=== PATIENT | female | born 1975 | race Caucasian/White ===

== ENCOUNTER 2017-04-23 13:10 | Inpatient (IN) | payer OTHER ==
[~2017-04-23] VITALS: Ht 167.6 cm; Wt 64.5 kg
--- NOTE | ~2017-04-23 | CO ---
Unit #: [id number] #: [id number] Patient: HENRY FAUST [id number] [address] [address] [id number] I MR#: [id number] NAME: HENRY FAUST ROOM: 321 Age: 41 Sex: F Admission Date: 04/23/2017 : 1975 Attending Physician: Vibha Sears M.D. Primary Care Physician: Primary Care Physician No Consultation Date: 04/25/2017 CONSULTATION REPORT REASON FOR CONSULTATION Followup. DISCUSSION Ms. Henry Faust is a 41-year-old white female, seen in room 321, bed 1, on 04/25/2017. The patient was receiving treatment for the infection of her swollen foot. History of opioid abuse and polysubstance abuse. Drug of choice opioids and amphetamine. The patient denied any suicidal or homicidal ideation. Denied any psychotic symptom, but reports that she wanted to go home. The patient was placed on 72-hour hold and a sitter and she made comment at the time of admission about harming herself. The patient denied any current suicidal or homicidal ideation. Denied any psychotic symptom. The patient understands that if she leaves that infection can spread. The patient understands the nature of illness and consequences. Vital signs; temperature 98.9, heart rate 91, respiratory rate 16, blood pressure 146/95, and oxygen saturation 100%. The patient alert and oriented in time, place, and person. REVIEW OF SYSTEMS Complete review of systems unremarkable. MENTAL STATUS EXAMINATION General appearance, the patient dressed casually in hospital attire. Attention span and concentration, fair. Oriented in time, place, and person. Mood and affect, labile. Speech, regular rate. Thought process, circumstantial. Thought content, the patient denied any thoughts of harming self or others or any psychotic symptom. Recent and remote memory, fair. The patient denied any suicidal or homicidal ideation. Denied any psychotic symptom. Fund of knowledge, fair. Insight and judgment, fair to slightly impaired. DIAGNOSES Psychiatric: Opioid use disorder, severe, F11.20 and mood disorder, not otherwise specified, F32.9. ASSESSMENT/PLAN 1. Supportive psychotherapy and psychoeducation provided to the patient. 2. Educated about benefits and side effects of medication and course and prognosis of illness. 3. Advised to continue with current treatment. Advised to discontinue 72-hour hold and one-to-one monitoring. Please feel free to call if any questions, telephone #[phone]. Unit #: [id number] #: [id number] Patient: HENRY FAUST Dictated by... Manuel Kennedy/alysia TD: 04/25/2017 16:00 JOB #: [id number] CONSULTATION REPORT Page 1 of 1 X Omid Flores MD X CONSULTATION REPORT
--- NOTE | ~2017-04-23 | HP ---
Unit #: [id number] #: [id number] Patient: HENRY FAUST [id number] [facility] [address] [facility]. [place], [place] [address] [id number] I MR#: [id number] NAME: HENRY FAUST ROOM: 88868 Age: 41 Sex: F Admission Date: 04/23/2017 : 1975 Attending Physician: Vibha Sears M.D. Primary Care Physician: No Primary Care Physician HISTORY AND PHYSICAL DIAGNOSIS ON ADMISSION Left foot cellulitis. HISTORY OF PRESENT ILLNESS A 41-year-old patient presented to [facility] with left foot swelling. The patient is currently lethargic and is mumbling words and is not good historian. Patient states that her foot was swollen for last two days. She denies any injury to that. Patient was apparently as per ER notes; patient's friend stated that patient was shooting up IV drugs in his foot which patient denies. Patient also told EMS that she wanted to kill herself; therefore, currently she is in a 72-hour hold. Patient denies having a fever, chills or cough. She denies any blood in urine or in stools. She states that she is not trying to hurt herself as she has children. Currently she denies any suicidal ideation or intention. REVIEW OF SYSTEMS Rest of the review of systems is negative but is not reliable because of patient being lethargic. PAST MEDICAL HISTORY Patient has a history of depression as per patient but said she does not take any medications as she has history of anxiety disorder and IV heroin use. PAST SURGICAL HISTORY History of laceration because of needle stuck in arm. She has tubal ligation. ALLERGIES Allergies are no known drug allergies. HOME MEDICATIONS None. SOCIAL HISTORY Patient smokes one pack of cigarettes per day and she uses IV heroin but states that her last use was a few days ago. FAMILY HISTORY Patient denies any history of significant illness in the family. PHYSICAL EXAMINATION GENERAL: Patient is lying comfortably in bed, is not in any obvious acute Unit #: [id number] #: [id number] Patient: HENRY FAUST distress. She is lethargic. VITAL SIGNS: Reveal a temperature of 98.4, pulse currently is 92 per minute, respiratory rate is 16 per minute, blood pressure is 108/68. HEENT: Examination revealed no conjunctival congestion. Sclerae is nonicteric. NECK: Is supple. Trachea is central. RESPIRATORY: Examination revealed decreased breath sounds bilaterally. There are no wheezes or crackles. HEART: Is regular rate and rhythm, S1, S2. ABDOMEN: is soft but tender. Bowel sounds are present in all 4 quadrants. EXTREMITIY: Patient has left foot swelling. It is warm to touch and there is erythema present. Patient has a pedal pulse present. SKIN: Is warm and dry. PSYCHIATRIC: Patient has flat affect but is alert to person, place and time. DIAGNOSTIC STUDIES LABS: On admission the patient's creatinine is 0.9, sodium was 120, potassium is 2.4. AST and ALT is within normal limits. WBC is 21.4, hemoglobin is 9.8, platelet count is 189. Patient's BNP was 167. Urine tox screen was positive for amphetamines and opiates. Lactic acid level was 1.7. ASSESSMENT AND PLAN 1. Left foot cellulitis. Patient already given IV vancomycin. I will also add IV Levaquin. 2. Suicidal ideation. Patient is in 72-hour hold. I will request Dr. Flores to see patient in consultation. 3. History of IV drug (heroin) use. 4. Hyponatremia. Will start the patient on 0.9 normal saline and will repeat sodium in the morning. 5. Hypokalemia. Patient is already receiving IV runs. We will repeat patient's potassium after the runs and if potassium low will start him on potassium protocol. 6. I discussed with patient in detail who is aware of her fact that her overall IV drug abuse can lead to permanent disability and can cause possible . Dictated by Manuel Kirkpatrick TD: 04/23/2017 21:08 JOB #: [id number] Unit #: [id number] #: [id number] Patient: HENRY FAUST HISTORY AND PHYSICAL Page 1 of 1 X Vibha Sears MD HISTORY AND PHYSICAL
--- NOTE | ~2017-04-23 | CR126 ---
[facility] A Service of [facility] RADIOLOGY TEXT RESULTS PATIENT: HENRY FAUST LOCATION: [facility] : [birth year] UNIT #: [id number] AGE: [address]: Vibha Sears MD SEX: F ORDER DR: [id number] [address] [place], [place] [address] [id number] I MR#: [id number] Acc #: [id number] NAME: HENRY FAUST : 1975 SEX: F STUDY DATE/TIME: 04/23/2017 15:58 UNIT: [address] ROOM: [facility] STUDY DESCRIPTION: CR Foot Complete Min 3 View Lt Attending Physician: Vibha Sears M.D. Ordering Physician: Kristine Agarwal M.D. Primary Care Physician: No Primary Care Physician MEDICAL IMAGING REPORT This report is preliminary unless electronic signature is present EXAM 3 views left foot DATE 04/23/2017 HISTORY Left foot and ankle pain and swelling for 2 days. No known injury. COMPARISON None. FINDINGS Diffuse left foot soft tissue swelling is present. No fracture. No dislocation. Small plantar calcaneal spur. No retained opaque foreign body. No subcutaneous gas. IMPRESSION Diffuse left foot soft tissue swelling. No acute osseous abnormality or retained radiopaque foreign body. Dictated by... Brisa August M.D. THIS IS AN ELECTRONICALLY VERIFIED REPORT Brisa August M.D. at 04/24/2017 5:[address] [facility]/rosibel TD: 04/24/2017 11:58 JOB #: [id number] MEDICAL IMAGING REPORT [facility] A Service [facility] RADIOLOGY TEXT RESULTS PATIENT: HENRY FAUST LOCATION: [facility] : [birth year] UNIT #: [id number] AGE: [address]: Vibha Sears MD SEX: F ORDER DR: Page 1 of 1 COPY
--- NOTE | ~2017-04-23 | CR20 ---
[facility] A Service of [facility] & [facility] RADIOLOGY TEXT RESULTS PATIENT: HENRY FAUST LOCATION: [facility] 321- : [birth year] UNIT #: [id number] AGE: [address]: Vibha Sears MD SEX: F ORDER DR: [id number] [facility] [address] [facility]. [place], [place] [address] [id number] I MR#: [id number] Acc #: [id number] NAME: HENRY FAUST : 1975 SEX: F STUDY DATE/TIME: 04/23/2017 15:58 UNIT: [address] ROOM: [facility] STUDY DESCRIPTION: CR Ankle Min 3 Views Lt Attending Physician: Vibha Sears M.D. Ordering Physician: Kristine Agarwal M.D. Primary Care Physician: Primary Care Physician No MEDICAL IMAGING REPORT This report is preliminary unless electronic signature is present EXAM 3 views left ankle. DATE: 04/23/2017 HISTORY Left foot and ankle pain and swelling for 2 days. No known injury. COMPARISON None. FINDINGS Left ankle soft tissue swelling is present, slightly greatest medially. No fracture. No dislocation. Small plantar calcaneal spur. No retained radiopaque foreign body. IMPRESSION Mild left ankle soft tissue swelling. No acute osseous abnormality. Dictated by... Brisa August M.D. THIS IS AN ELECTRONICALLY VERIFIED REPORT Brisa August M.D. at 04/24/2017 5:[address] [facility]/denise TD: 04/24/2017 11:51 JOB #: [id number] MEDICAL IMAGING REPORT Page 1 of 1 COPY
--- NOTE | ~2017-04-23 | CR229 ---
[facility] A Service of [facility] & [facility] RADIOLOGY TEXT RESULTS PATIENT: HENRY FAUST LOCATION: [facility] 321- : [birth year] UNIT #: [id number] AGE: [address]: Vibha Sears MD SEX: F ORDER DR: [id number] [facility] [address]. [place], [place] [address] [id number] I MR#: [id number] Acc #: [id number] NAME: HENRY FAUST : 1975 SEX: F STUDY DATE/TIME: 04/24/2017 11:00 UNIT: [address] ROOM: [facility] STUDY DESCRIPTION: CR Shoulder Min 2 View Lt Attending Physician: Vibha Sears M.D. Ordering Physician: Vibha Sears M.D. Primary Care Physician: Primary Care Physician No MEDICAL IMAGING REPORT This report is preliminary unless electronic signature is present EXAM Left shoulder 2 views HISTORY Shoulder and wrist pain for 2 days. No known injury. FINDINGS 2 views of the left shoulder demonstrates no fracture, dislocation or arthritic inflammatory change. Soft tissues and visualized left thorax appear normal. IMPRESSION Negative left shoulder Dictated by... Jo Shin M.D. THIS IS AN ELECTRONICALLY VERIFIED REPORT Jo Shin M.D. at 04/26/2017 2:35 PM EDWIGE/milind TD: 04/24/2017 20:28 JOB #: [id number] MEDICAL IMAGING REPORT Page 1 of 1 COPY
--- NOTE | ~2017-04-23 | CT57 ---
[facility] A Service of [facility] & [facility] RADIOLOGY TEXT RESULTS PATIENT: HENRY FAUST LOCATION: [facility] 321-01 : [birth year] UNIT #: [id number] AGE: [address]: Vibha Sears MD SEX: F ORDER DR: [id number] [facility] [address]. [place], [place] [address] [id number] I MR#: [id number] Acc #: [id number] NAME: HENRY FAUST : 1975 SEX: F STUDY DATE/TIME: 04/24/2017 20:23 UNIT: A U ROOM: 321 STUDY DESCRIPTION: CT Chest Wo Cont Attending Physician: Vibha Sears M.D. Ordering Physician: Morgan Haji M.D. Primary Care Physician: No Primary Care Physician MEDICAL IMAGING REPORT This report is preliminary unless electronic signature is present EXAM CT chest without contrast. HISTORY Weakness and chest pain for [address] exam was performed with one or more of the following radiation dose reduction techniques: automatic exposure control, adjustment of mA and/or kV according to patient size, and iterative reconstruction. FINDINGS CT chest without contrast demonstrates mild atelectasis in the posterior and inferior lower lobes bilaterally. There is a 10 mm irregularly marginated nodular density along the anteroinferior margin of the right lower lobe. This could be infectious or inflammatory. Neoplasm is not excluded. Comparison to prior outside CT examination is recommended if available. Otherwise, further characterization with PET CT or followup CT chest in 3 months is recommended. There is also a 6 mm nodule in the medial right lower lobe, which could be followed on subsequent CT as well. Mild subsegmental atelectasis in the medial right middle lobe. Small calcified granulomas in the right lung apex. Partly calcified mediastinal nodes, several of which are at the upper limits of normal in size. Borderline to mild splenic enlargement. Normal caliber thoracic aorta. IMPRESSION 1. There is a 10 mm indeterminate nodule in the anterior margin of the inferior right lower lobe. There is also a 6 mm subpleural nodule in the inferomedial right lower lobe. Comparison to prior outside chest CTs if available is recommended. Otherwise, followup chest CT in [address] is recommended. 2. Incidental mild atelectasis in the posterior and inferior lower lobes bilaterally. [facility] A Service of [facility] & [facility] RADIOLOGY TEXT RESULTS PATIENT: HENRY FAUST LOCATION: [facility] 321-01 : [birth year] UNIT #: [id number] AGE: [address]: Vibha Sears MD SEX: F ORDER DR: 3. Partly calcified borderline and borderline enlarged mediastinal nodes. No pleural effusions. 4. Borderline to mild splenic enlargement. Dictated by... Maged Zamudio M.D. THIS IS AN ELECTRONICALLY VERIFIED REPORT Maged Zamudio M.D. at 04/25/2017 11:48 PM JUAN/angeles TD: 04/25/2017 10:39 JOB #: [id number] MEDICAL IMAGING REPORT Page 1 of 1 COPY
--- NOTE | ~2017-04-23 | CO ---
Unit #: [id number] #: [id number] Patient: HENRY FAUST [id number] [address] [place], [place] [address] [id number] I MR#: [id number] NAME: HENRY FAUST ROOM: 321 Age: 41 Sex: F Admission Date: 04/23/2017 : 1975 Attending Physician: Vibha Sears M.D. Primary Care Physician: Primary Care Physician No Consultation Date: 04/24/2017 CONSULTATION REPORT REASON FOR CONSULTATION Positive blood cultures. HISTORY OF PRESENT ILLNESS The patient is a 41-year-old female, IV drug user. Last use was couple of days ago prior to presentation in the right upper extremity that is why the patient took me, but according to the notes, some family and friends have told that she was trying to inject in the left foot, which actually became warm, tender, swollen that is why she came in and she was diagnosed with left foot cellulitis and was admitted. Blood cultures 2/2 gram positive cocci in chains. She is complaining of chest pain when she takes breathing and also coughing. She also complained of some middle back pain. No nausea, vomiting, diarrhea, headaches or dizziness. She is on vancomycin and Zosyn. Infectious Disease consultation requested for further evaluation and antibiotic management. She does have a suicide ideation and is on 27-hour hold. PAST MEDICAL HISTORY Depression. SOCIAL HISTORY Remarkable for IV drug use. PAST SURGICAL HISTORY Remarkable for neck laceration repair and tubal ligation. ALLERGIES No known drug allergies. CURRENT MEDICATIONS List reviewed. Antibiotics include Zosyn and vancomycin. PHYSICAL EXAMINATION GENERAL: Lying in bed, sick looking, but answering questions appropriately. VITAL SIGNS: Temperature 98.3, pulse 96, respirations 16, blood pressure 139/89. HEENT: Unremarkable. NECK: Supple. CHEST: Clear to auscultation. HEART: Normal S1, S2. ABDOMEN: Soft, nontender. EXTREMITIES: Shows no edema. Unit #: [id number] #: [id number] Patient: HENRY FAUST DIAGNOSTIC STUDIES IMAGING STUDIES: Chest x-ray, left ankle and left foot x-ray unremarkable for any acute changes. LABORATORY RESULTS: BUN 10, creatinine 0.5. AST 23, ALT 16, alkaline phosphatase 189. Lactic acid 1.7. WBC 12, which was 21.4 upon admission; hemoglobin 9.2; platelets 185. Tox screen positive for amphetamines and opiates. Urinalysis had some leukocyte esterase, hematuria, pyuria. Blood cultures 2/2 drawn almost 30 minutes apart gram positive cocci in chains. ASSESSMENT 1. IV drug use. 2. Gram-positive cocci bacteremia. 3. Rule out endocarditis. 4. Rule out septic pulmonary emboli. 5. Rule out thoracic spine infection. 6. Left foot cellulitis. PLAN At this time, I would go ahead and continue with her vancomycin and Zosyn. We will give one dose of tobramycin for rapid clearance and synergistic activity. We will get echocardiogram and MRI of the thoracic spine with contrast and CT scan of the chest without contrast to rule out above mentioned possibilities. We will also go ahead and get an HIV screen and hepatitis screen. Further recommendation depending upon the course. I would like thank Dr. Sears for asking us to participate in the care of this patient. We will follow this patient along with you. Dictated by... Manuel Ferguson/alysia TD: 04/24/2017 19:27 JOB #: [id number] CONSULTATION REPORT Page 1 of 1 X Morgan Haji MD X CONSULTATION REPORT
--- NOTE | ~2017-04-23 | CR72 ---
[facility] A Service of [facility] & [facility] RADIOLOGY TEXT RESULTS PATIENT: HENRY FAUST LOCATION: [facility] 321- : [birth year] UNIT #: [id number] AGE: [address]: Vibha Sears MD SEX: F ORDER DR: [id number] [facility] [address] [facility]. [place], [place] [address] [id number] I MR#: [id number] Acc #: [id number] NAME: HENRY FAUST : 1975 SEX: F STUDY DATE/TIME: 04/23/2017 15:58 UNIT: [address] ROOM: [facility] STUDY DESCRIPTION: CR Chest Single View Portable Attending Physician: Vibha Sears M.D. Ordering Physician: Kristine Agarwal M.D. Primary Care Physician: Primary Care Physician No MEDICAL IMAGING REPORT This report is preliminary unless electronic signature is present EXAM Portable chest INDICATIONS Chest pain and shortness of air for 2 days. FINDINGS Portable view of the chest was obtained. Heart size and vascular are normal. Lungs are clear. Bones were unremarkable. IMPRESSION No active disease. Dictated by... Lennox Drew M.D. THIS IS AN ELECTRONICALLY VERIFIED REPORT Lennox Drew M.D. at 04/24/2017 1:30 PM FEL/lb TD: 04/24/2017 10:48 JOB #: [id number] MEDICAL IMAGING REPORT Page 1 of 1 COPY
--- NOTE | ~2017-04-23 | CR278 ---
[facility] A Service of [facility] & [facility] RADIOLOGY TEXT RESULTS PATIENT: HENRY FAUST LOCATION: [facility] 321- : [birth year] UNIT #: [id number] AGE: [address]: Vibha Sears MD SEX: F ORDER DR: [id number] [facility] [address] [facility]. [place], [place] [address] [id number] I MR#: [id number] Acc #: [id number] NAME: HENRY FAUST : 1975 SEX: F STUDY DATE/TIME: 04/24/2017 10:58 UNIT: [address] ROOM: [facility] STUDY DESCRIPTION: CR Wrist 2 View Lt Attending Physician: Vibha Sears M.D. Ordering Physician: Vibha Sears M.D. Primary Care Physician: No Primary Care Physician MEDICAL IMAGING REPORT This report is preliminary unless electronic signature is present EXAM Left wrist, 3 views. HISTORY Wrist and shoulder pain for 2 days. No known injury. FINDINGS Three views of the left wrist demonstrates no fracture or malalignment. Bone structure appears normal. Soft tissues unremarkable. No evidence of underlying arthropathy. IMPRESSION Negative left wrist. Dictated by... Jo Shin M.D. THIS IS AN ELECTRONICALLY VERIFIED REPORT Jo Shin M.D. at 04/26/2017 2:35 PM Jacinda TD: 04/24/2017 20:30 JOB #: [id number] MEDICAL IMAGING REPORT Page 1 of 1 COPY
--- NOTE | ~2017-04-23 | CO ---
Unit #: [id number] #: [id number] Patient: HENRY FAUST [id number] [address] [place], [place] [address] [id number] I MR#: [id number] NAME: HENRY FAUST ROOM: 321 Age: 41 Sex: F Admission Date: 04/23/2017 : 1975 Attending Physician: Vibha Sears M.D. Primary Care Physician: Primary Care Physician No Consultation Date: 04/24/2017 CONSULTATION REPORT REASON FOR CONSULTATION Suicidal ideation and substance abuse. HISTORY OF PRESENT ILLNESS Henry Faust is a 41-year-old white female, seen in room 321, bed 1 on 04/24/2017. The patient has a history of previous treatment at [facility] in 2014, diagnosed with polysubstance abuse, mood disorder. The patient dressed in hospital attire, lying in a propped up position, eating her breakfast, has a sitter at the bedside. The patient's mood was labile. Reports that she wants to go home. The patient's vital signs; temperature 98.3, pulse 96, respirations 16, blood pressure 139/89, and oxygen saturation 97%. The patient was admitted with left foot cellulitis. The patient made statement about shooting up IV drugs in her foot. The patient was placed on 72-hour hold as she made comments about wanting to kill herself. The patient was having fever, chills, cough, blood in urine and stool. The patient's mood was labile, at this time denied any thoughts of harming self or others, but made those comments. Seemed anxious, nervous, sad, depressed. The patient reported drug of choice is heroin. PAST PSYCHIATRIC HISTORY Remarkable for history of previous treatment at [facility]. History of polysubstance abuse and depression. MEDICAL HISTORY Remarkable for history of cellulitis. No other chronic medical illness. MEDICATION HISTORY Home medications, none. ALLERGIES No known drug allergies. FAMILY HISTORY AND SOCIAL HISTORY The patient reports that she has a good support system. No history of abuse. History of substance abuse as mentioned above. Drug of choice is opiates. REVIEW OF SYSTEMS Complete review of system is unremarkable except as mentioned above. MENTAL STATUS EXAMINATION The patient's vital signs; temperature 98.3, pulse 96, respirations 16, blood pressure 139/89, and oxygen saturation 97%. General appearance; the Unit #: [id number] #: [id number] Patient: HENRY FAUST patient dressed casually in hospital attire. Attention span and concentration, poor. Speech, rambling. Oriented in place and person. Mood and affect, labile. Thought process, circumstantial. Thought content, guarded and paranoid. Reported suicidal ideation, but at this time denied any suicidal ideation. Reports that she wants to go home. Recent and remote memory, poor. Language, fair. Fund of knowledge, poor. Insight and judgment, fair to slightly impaired. DIAGNOSES Psychiatric: Major depressive disorder, recurrent, severe, F33.2; opioid use disorder, severe, F11.20. Secondary diagnosis: Deferred. Medical diagnosis: Please refer to H and P. Stressors: Psychosocial stressors. ASSESSMENT/PLAN 1. Supportive psychotherapy and psychoeducation provided to the patient. 2. Educated about benefits and side effects of medication and course and prognosis of illness. 3. Advised to continue with current treatment, continue with one-to-one monitoring, and 72-hour hold. Recommending to add Vistaril 25 mg t.i.d. for anxiety, Desyrel 50 mg at bedtime for sleep, and Zyprexa 10 mg at bedtime for mood stabilization. We will continue to follow. Please feel free to call if any questions, telephone #[phone]. Dictated by... Manuel Kennedy/alysia TD: 04/24/2017 17:53 JOB #: [id number] CONSULTATION REPORT Page 1 of 1 X Omid Flores MD X CONSULTATION REPORT
[~2017-04-23 13:10] MED LIST: NO MEDICATIONS
[2017-04-23 15:41] LABS: URINE SOURCE CLEAN CATCH
[2017-04-23 15:54] LABS: URINE APPEARANCE CLOUDY; URINE BILIRUBIN NEG (NEG); URINE BLOOD 3+ (NEG); URINE COLOR ORANGE; URINE GLUCOSE NEG (NEG); URINE KETONE NEG (NEG); URINE LEUKOCYTE ESTERASE 2+ (NEG); URINE NITRATE NEG (NEG); URINE PROTEIN 1+ (NEG); URINE SPECIFIC GRAVITY 1.012 (1.003-1.035)
[2017-04-23 15:57] LABS: CULTURE INDICATED? YES; URBCS1 AUWI INNUM /[HPF] (0-2); URINE BACTERIA AUWI 4+ (NEGATIVE); URINE SQUAMOUS EPITHELIAL CELL OCC /[HPF]; UWBCS1 AUWI 25-50 (0-5)
[2017-04-23 16:00] LABS: INR 1.1; PARTIAL THROMBOPLASTIN TIME 31.6 SECONDS (23.5-31.3); PROTHROMBIN TIME (PATIENT) 11.4 SECONDS (10.0-11.7)
[2017-04-23 16:14] LABS: AMPHETAMINE POS (NEG); BARBITURATES NEG (NEG); BENZODIAZEPINES NEG (NEG); COCAINE NEG (NEG); MARIJUANA NEG (NEG); OPIATES POS (NEG); TRICYCLIC ANTIDEPRESSANTS NEG (NEG); U METHADONE NEG (NEG)
[2017-04-23 16:20] LABS: ALBUMIN SERUM 2.1 g/dL (3.5-5.0); BILIRUBIN, DIRECT 0.2 mg/dL (0.0-0.2); BILIRUBIN,INDIRECT 0.4 mg/dL (0.0-0.9); BILIRUBIN,TOTAL 0.6 mg/dL (0.2-2.0); BUN/CREATININE RATIO 31.11; CALCIUM SERUM 8.2 mg/dL (8.4-10.2); CREATININE SERUM 0.9 mg/dL (0.6-1.4); GLOM FILT RATE Estimated 80.6 mL/min (>60); PROTEIN TOTAL SERUM 7.5 g/dL (6.0-8.3)
[2017-04-23 16:23] LABS: POTASSIUM 2.3 mmol/L (3.5-5.1)
[2017-04-23 17:10] LABS: BASOPHIL% 0.1 % (0-2.5); EOSINOPHIL% 0.2 % (0.0-7.0); HEMATOCRIT 30.1 % (35.0-45.0); HEMOGLOBIN 9.8 gm/dL (12.0-16.0); LYMPHOCYTE# 1.4 X10e3 (1.0-3.5); LYMPHOCYTE% 6.6 % (17.0-45.0); MEAN CELL VOLUME 67.2 FL (83-96); MEAN CORPUSCULAR HGB CONC 32.7 g/dL (30-36); MEAN PLATELET VOLUME 8.4 FL (6.5-11.5); MONOCYTE# 1.6 X10e3 (0-1.0); MONOCYTE% 7.3 % (3.0-12.0); NEUTROPHIL# 18.3 X10e3 (1.5-7.1); NEUTROPHIL% 85.8 % (40-75); PLATELET COUNT 189 X10e3 (140-420); RED BLOOD COUNT 4.48 X10e (3.90-5.30); RED CELL DISTRIBUTION WIDTH 19.8 % (11.0-15.5); WHITE BLOOD COUNT 21.4 X10e3 (4.0-10.5)
[2017-04-23 17:11] LABS: DIFF IND YES
[2017-04-23 17:26] LABS: BUN/CREATININE RATIO 31.11; CREATININE SERUM 0.9 mg/dL (0.6-1.4); GLOM FILT RATE Estimated 80.6 mL/min (>60)
[2017-04-23 17:28] LABS: ANISOCYTOSIS SL; HYPOCHROMIA MOD; MICROCYTOSIS MOD; PLATELET ESTIMATE NORMAL (NORMAL); POTASSIUM 2.4 mmol/L (3.5-5.1)
[2017-04-23 17:29] LABS: STOMATOCYTE PRESENT
[2017-04-23 17:34] LABS: POC - CKMB <1.0 ng/mL (0.0-7.9); POC - TROPONIN <0.05 ng/mL (<=0.05)
[2017-04-23 19:03] LABS: POC - CKMB <1.0 ng/mL (0.0-7.9); POC - TROPONIN <0.05 ng/mL (<=0.05)
[2017-04-24 14:30] LABS: HEMATOCRIT 28.9 % (35.0-45.0); HEMOGLOBIN 9.2 gm/dL (12.0-16.0); MEAN CELL VOLUME 67.8 FL (83-96); MEAN CORPUSCULAR HEMOGLOBIN 21.6 PG (28-34); MEAN CORPUSCULAR HGB CONC 31.9 g/dL (30-36); MEAN PLATELET VOLUME 7.6 FL (6.5-11.5); RED BLOOD COUNT 4.27 X10e (3.90-5.30); RED CELL DISTRIBUTION WIDTH 19.6 % (11.0-15.5)
[2017-04-24 15:13] LABS: CREATININE SERUM 0.5 mg/dL (0.6-1.4); GLOM FILT RATE Estimated 121.9 mL/min (>60); POTASSIUM 3.5 mmol/L (3.5-5.1)
[2017-04-24 18:07] LABS: BASOPHIL# 0.1 X10e3 (0-0.3); BASOPHIL% 0.6 % (0-2.5); EOSINOPHIL% 0.1 % (0.0-7.0); HEMATOCRIT 28.8 % (35.0-45.0); HEMOGLOBIN 9.4 gm/dL (12.0-16.0); LYMPHOCYTE# 1.8 X10e3 (1.0-3.5); LYMPHOCYTE% 13.2 % (17.0-45.0); MEAN CELL VOLUME 67.6 FL (83-96); MEAN CORPUSCULAR HEMOGLOBIN 22.1 PG (28-34); MEAN CORPUSCULAR HGB CONC 32.7 g/dL (30-36); MEAN PLATELET VOLUME 7.5 FL (6.5-11.5); MONOCYTE# 1.5 X10e3 (0-1.0); MONOCYTE% 11.2 % (3.0-12.0); NEUTROPHIL# 10.2 X10e3 (1.5-7.1); NEUTROPHIL% 74.9 % (40-75); PLATELET COUNT 192 X10e3 (140-420); RED BLOOD COUNT 4.25 X10e (3.90-5.30); RED CELL DISTRIBUTION WIDTH 19.6 % (11.0-15.5); WHITE BLOOD COUNT 13.6 X10e3 (4.0-10.5)
[2017-04-24 18:09] LABS: DIFF IND NO
[2017-04-24 18:36] LABS: CALCIUM SERUM 8.1 mg/dL (8.4-10.2); CREATININE SERUM 0.5 mg/dL (0.6-1.4); GLOM FILT RATE Estimated 121.9 mL/min (>60); POTASSIUM 3.7 mmol/L (3.5-5.1)
[2017-04-28 15:23] LABS: HA AB IGM (HEPPAN) Nonreactive (()); HB CORE AB IGM (HEPPAN) Nonreactive (Nonreactive); HB S AG (HEPPAN) Nonreactive (Nonreactive); HEP C AB (HEPPAN) Reactive (Nonreactive)
== END 2017-04-25 11:45 | disposition left against medical advice (07) | DRG 602 ==
LOC: CED 13:10 → CEDOF 18:30 → CED 18:51 → C3A PCU 04-24 07:58 → CEDOF 04-24 07:58 → C3A PCU 04-24 07:58
PROVIDERS: Emergency Medicine; Internal Medicine; Internal Medicine Infectious Disease
DX: L03.116 Cellulitis of left lower limb (principal); I33.0 Acute and subacute infective endocarditis; F33.2 Major depressive disorder, recurrent severe without psychotic features; R78.81 Bacteremia; R45.851 Suicidal ideations; E87.1 Hypo-osmolality and hyponatremia; F11.20 Opioid dependence, uncomplicated; F17.210 Nicotine dependence, cigarettes, uncomplicated; E87.6 Hypokalemia
CPT/HCPCS: 36415; 71010; 71250; 73030; 73100; 73610; 73630; 80048; 80074; 80076; 80307; 81003; 82553; 83605; 83735; 83880; 84132; 84484; 84703; 85025; 85027; 85610; 85730; 86592; 87040; 87077; 87086; 87088; 87186; 87522; 87806; 96365; 99285; J1650; J2543; J3260; J3370; J3475